=== PATIENT | female | born 1970 | race African-American/Black ===

== ENCOUNTER 2018-04-03 11:24 | Emergency (ER) | payer MEDICAID ==
[~2018-04-03] VITALS: Ht 167.6 cm; Wt 82.5 kg
[2018-04-03] MEDS ORDERED: KETOROLAC 30MG/ML VIAL IV STA (11:50)
[2018-04-03 12:59] LABS: BASOPHILS % 0.3 % (0.0-2.0); EOSINOPHILS % 0.7 % (0.0-5.0); HEMATOCRIT. 39.8 % (36.0-48.0); HEMOGLOBIN. 13.1 g/dL (12.0-16.0); LYMPHOCYTES % 20.9 % (20.0-50.0); MEAN CORPUSCULAR HEMOGLOBIN 26.6 pg (28.0-32.0); MEAN CORPUSCULAR VOLUME 80.9 fL (81.0-99.0); MEAN PLATELET VOLUME 8.6 fl (7.4-10.4); MONOCYTES % 6.4 % (2.0-8.0); NEUTROPHILS % 71.7 % (40.0-76.0); PLATELET 310 x1000/uL (130-400); RED BLOOD CELL COUNT 4.93 mill/uL (4.2-5.4); RED CELL DISTRIBUTION WIDTH 16.8 % (11.6-14.6)
[2018-04-03 13:07] LABS: CHLORIDE 105 mEq/L (98-107)
[2018-04-03] MEDS ORDERED: HYDRALAZINE 20MG/ML VIAL IV ONE ×2 (13:45→16:30)
[2018-04-03] MEDS ORDERED: MORPHINE SULFATE 4 MG/ML CPJ (NOT FOR IM USE) IV ONE (16:30)
[2018-04-03] MEDS ORDERED: ONDANSETRON HCL 4MG/2ML INJ IV ONE (17:30)
[2018-04-03 19:25] VITALS: BP 148/105
[2018-04-07] MEDS ORDERED: AMLO10TA80 MT (16:20)
[2018-04-07] MEDS ORDERED: DYZ MT (16:20)
[2018-04-07] MEDS ORDERED: CLON0.1T MT (16:20)
== END 2018-04-03 19:57 | disposition left against medical advice (07) ==
LOC: ER 11:24 → CANBEDREQ 20:58
DX: M54.10 Radiculopathy, site unspecified (principal); M79.601 Pain in right arm; I10 Essential (primary) hypertension; R51 Headache; Z88.0 Allergy status to penicillin; Z79.899 Other long term (current) drug therapy
CPT/HCPCS: 36415; 70450; 72125; 73140; 80053; 82962; 84484; 85025; 93005; 96374; 96375; 96376; 99284; J0360; J1885; J2270; J2405

== ENCOUNTER 2022-03-30 23:25 | Emergency (ER) | payer MEDICAID ==
[~2022-03-30] VITALS: Ht 152.4 cm; Wt 90.6 kg
[~2022-03-30 23:25] MED LIST: AMLO10TA80 MT; CLON0.1T MT; DYZ MT
[2022-03-30 23:34] VITALS: BP 136/100
[2022-03-31 01:20] LABS: BASOPHILS % 0.4 % (0.0-2.0); EOSINOPHILS % 1.3 % (0.0-5.0); HEMATOCRIT. 38.3 % (36.0-48.0); HEMOGLOBIN. 12.7 g/dL (12.0-16.0); LYMPHOCYTES % 39.8 % (20.0-50.0); MEAN CORPUSCULAR HEMOGLOBIN 26.9 pg (28.0-32.0); MEAN CORPUSCULAR VOLUME 81.4 fL (81.0-99.0); MEAN PLATELET VOLUME 8.2 fl (7.4-10.4); MONOCYTES % 7.5 % (2.0-8.0); PLATELET 258 x1000/uL (130-400); RED BLOOD CELL COUNT 4.71 mill/uL (4.2-5.4); RED CELL DISTRIBUTION WIDTH 15.8 % (11.6-14.6)
[2022-03-31] MEDS ORDERED: IBUPROFEN 600MG TABLET PO ONE (01:45)
[2022-03-31 02:02] LABS: CHLORIDE 104 mEq/L (98-107)
[2022-03-31] MEDS ORDERED: HYDROCODONE/ACETAMINOPHEN 5/325MG TABLET PO ONE (03:15)
[2022-03-31 03:24] LABS: CLARITY URINE CLEAR (CLEAR); COLOR URINE YELLOW (YELLOW)
[2022-03-31 03:25] LABS: KETONES URINE NEGATIVE (NEGATIVE); NITRITE URINE NEGATIVE (NEGATIVE); OCCULT BLOOD URINE NEGATIVE (NEGATIVE); PROTEIN URINE NEGATIVE (NEGATIVE); SPECIFIC GRAVITY URINE 1.015 (1.005-1.030)
[2022-03-31 03:26] LABS: LEUKOCYTE ESTERASE URINE NEGATIVE (NEGATIVE); UROBILINOGEN URINE 0.213 E.U./dL (0.2-1.0)
== END 2022-03-31 03:36 | disposition home or self-care (01) ==
LOC: ER 23:25
DX: R07.89 Other chest pain (principal); N81.4 Uterovaginal prolapse, unspecified; I10 Essential (primary) hypertension; F12.10 Cannabis abuse, uncomplicated; Z88.0 Allergy status to penicillin
CPT/HCPCS: 36415; 71045; 76830; 76856; 80053; 81003; 84484; 85025; 99285

== ENCOUNTER 2024-05-17 23:23 | Emergency (ER) | payer MEDICAID ==
[~2024-05-17] VITALS: Ht 165.1 cm; Wt 73.0 kg
[2024-05-17 23:38] VITALS: BP 131/99; PULSE 99; RESP 15; TEMP 36.8; O2SAT 98
== END 2024-05-18 00:21 | disposition left against medical advice (07) ==
LOC: ER 23:23
DX: R07.9 Chest pain, unspecified (principal); I10 Essential (primary) hypertension; Z53.21 Procedure and treatment not carried out due to patient leaving prior to being seen by health care provider
CPT/HCPCS: 93005